=== PATIENT | female | born 1985 | race Caucasian/White ===

== ENCOUNTER 2021-12-21 00:08 | Emergency (ER) | payer MEDICAID ==
[~2021-12-21] VITALS: Ht 152.4 cm; Wt 117.9 kg
[~2021-12-21 00:08] MED LIST: AMPI500C49 PO
[2021-12-21 00:11] VITALS: BP 190/104
--- NOTE | 2021-12-21 00:20 | NUR ---
TO LOBBY FOLLOWING TRIAGE
--- NOTE | 2021-12-21 01:47 | NUR ---
PT AMBULATED TO BED NO 2
--- NOTE | 2021-12-21 02:12 | NUR ---
ERMD AT BEDSIDE EXAMINING PT
--- NOTE | 2021-12-21 02:25 | NUR ---
36 Y/O FEMALE BIBS FROM HOME, C/O LEFT EAR PAIN 02/19. PT STATES SHE HAS LEFT EAR PAIN WITH SWELLING, DRAINAGE, MUFFLES HEARING, AND A NUMB FEELING. PT DENIES FEVER/CHILLS, COUGH, SOB, CP, V/D. PT HAS NAUSEA WITH PAIN. PT DESCRIBES PAIN CONSTANT AND DULL. PT SAW A PROVIDER YESTERDAY FOR SAME AND WAS PRESCRIBED NEOMYCIN, IBUPROFEN, AND AMOXICILLIN. PT STATES NO RELIEF. HX: HTN NKA
[2021-12-21] MEDS ORDERED: ACET-8386 PO (02:30)
[2021-12-21] MEDS ORDERED: KETOROLAC 60 MG/2 ML VIAL IM ONE (02:30)
--- NOTE | 2021-12-21 02:40 | NUR ---
PT STATES NO POSSIBILITY OF
--- NOTE | 2021-12-21 02:46 | NUR ---
HOUSE CALLS NURSE- [id number]
[2021-12-21 02:51] VITALS: BP 176/99
--- NOTE | 2021-12-21 02:52 | NUR ---
Patient discharged with v/s stable. Written and verbal after care instructions given and explained. Patient alert, oriented and verbalized understanding of instructions. Ambulatory with steady gait. All questions addressed prior to discharge. ID band removed. Patient advised to follow up with PMD. Rx of NORCO given. Patient educated on indication of medication including possible reaction and side effects. Opportunity to ask questions provided and answered. VSS, A/OX4, UNLABORED BREATHING, AMBULATORY, AND CALM DEMEANOR.
== END 2021-12-21 02:52 | disposition home or self-care (01) ==
LOC: MED 00:08
DX: H60.92 Unspecified otitis externa, left ear (principal); I10 Essential (primary) hypertension; Z79.899 Other long term (current) drug therapy
CPT/HCPCS: 96372; 99283; J1885